=== PATIENT | male | born 2000 | race African-American/Black ===

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

== ENCOUNTER 2020-11-18 15:10 | Emergency (ER) | payer OTHER ==
[~2020-11-18] VITALS: Ht 172.7 cm; Wt 86.2 kg
[2020-11-18 15:22] VITALS: BP 135/81
== END 2020-11-18 16:00 | disposition home or self-care (01) ==
LOC: ED 15:10
DX: Z20.2 Contact with and (suspected) exposure to infections with a predominantly sexual mode of transmission (principal)

== ENCOUNTER 2021-03-08 20:29 | Emergency (ER) | payer OTHER ==
[~2021-03-08] VITALS: Ht 175.2 cm; Wt 86.2 kg
[2021-03-08 20:36] VITALS: BP 149/75
[2021-03-08] MEDS ORDERED: DOXYCYCLINE100 M3 PO (23:25)
[2021-03-09 01:15] LABS: BASO % 0.4 % (0.0-1.0); EOS % 0.4 % (1.0-4.0); HEMATOCRIT 46.6 % (42.0-52.0); LYMPH # 1.5 10*3/uL (1.3-4.4); LYMPH % 18.2 % (27.0-41.0); MEAN CORPUSCULAR HGB 30.9 pg (27.0-31.0); MEAN CORPUSCULAR HGB CONC 33.9 g/dl (33.0-37.0); MEAN PLATELET VOLUME 8.6 fl (9.6-12.3); MONO # 0.3 10*3/uL (0.1-1.0); MONO % 3.9 % (3.0-9.0); NEUT # 6.3 10*3/uL (2.3-7.9); NEUT % 76.7 % (47.0-73.0); PLATELET COUNT AUTOMATED 266 10*3/uL (130-400); RED BLOOD COUNT 5.12 10*6/uL (4.50-5.90); RED CELL DISTRI WIDTH 12.1 % (0-14.5); WHITE BLOOD COUNT 8.2 10*3/uL (4.8-10.8)
[2021-03-09 01:34] LABS: ALKALINE PHOSPHATASE 51 U/L (45-117); BUN 7 mg/dl (7-24); CHLORIDE 101 mmol/L (98-107); CREATININE 0.91 mg/dL (0.70-1.30); POTASSIUM 3.8 mmol/L (3.5-5.1); SGOT/AST 25 IU/L (3-35); SGPT/ALT 19 U/L (12-78); SODIUM 136 mmol/L (136-145); TOTAL PROTEIN 8.2 gm/dL (6.4-8.2)
== END 2021-03-09 02:13 | disposition home or self-care (01) ==
LOC: ED 20:29
PROVIDERS: Physician Assistant
DX: S01.511A Laceration without foreign body of lip, initial encounter (principal); Z98.890 Other specified postprocedural states; W22.8XXA Striking against or struck by other objects, initial encounter; Y93.89 Activity, other specified; Y92.89 Other specified places as the place of occurrence of the external cause; Y99.9 Unspecified external cause status

== ENCOUNTER 2021-08-19 03:53 | Emergency (ER) | payer SELFPAY ==
[~2021-08-19] VITALS: Ht 172.7 cm; Wt 83.9 kg
[~2021-08-19 03:53] MED LIST changes: +DOXYCYCLINE100 M3 PO
[2021-08-19 04:36] VITALS: BP 119/72
[2021-08-19] MEDS ORDERED: TESSALON PERLE100 MG PO (07:45)
[2021-08-19] MEDS ORDERED: CLARITIN10 MG PO (07:45)
== END 2021-08-19 12:22 | disposition home or self-care (01) ==
LOC: ED 03:53
DX: J06.9 Acute upper respiratory infection, unspecified (principal); Z20.822 Contact with and (suspected) exposure to COVID-19; Z98.890 Other specified postprocedural states

== ENCOUNTER 2022-02-11 11:28 | Emergency (ER) | payer SELFPAY ==
[~2022-02-11] VITALS: Ht 172.7 cm; Wt 86.2 kg
[~2022-02-11 11:28] MED LIST changes: +TESSALON PERLE100 MG PO
[2022-02-11 11:34] VITALS: BP 126/71
== END 2022-02-11 13:05 | disposition home or self-care (01) ==
LOC: ED 11:28
DX: A64 Unspecified sexually transmitted disease (principal); Z79.899 Other long term (current) drug therapy; Z98.890 Other specified postprocedural states

== ENCOUNTER 2022-06-12 20:28 | Emergency (ER) | payer OTHER ==
[~2022-06-12] VITALS: Ht 1798 cm; Wt 81.6 kg
[2022-06-12 20:30] VITALS: BP 138/80
[2022-06-12] MEDS ORDERED: SILVADENE20 GM T (21:37)
== END 2022-06-12 22:14 | disposition home or self-care (01) ==
LOC: ED 20:28
DX: T23.301A Burn of third degree of right hand, unspecified site, initial encounter (principal); Z79.899 Other long term (current) drug therapy; Z98.890 Other specified postprocedural states; X19.XXXA Contact with other heat and hot substances, initial encounter; Y93.89 Activity, other specified; Y92.89 Other specified places as the place of occurrence of the external cause; Y99.8 Other external cause status

== ENCOUNTER 2022-10-03 00:02 | Emergency (ER) | payer OTHER ==
[~2022-10-03] VITALS: Ht 172.7 cm; Wt 81.6 kg
[~2022-10-03 00:02] MED LIST changes: +SILVADENE20 GM T
[2022-10-03 00:09] VITALS: BP 123/58
== END 2022-10-03 00:54 | disposition home or self-care (01) ==
LOC: ED 00:02
DX: Z20.2 Contact with and (suspected) exposure to infections with a predominantly sexual mode of transmission (principal); Z98.890 Other specified postprocedural states

== ENCOUNTER 2023-09-04 16:56 | Emergency (ER) | payer OTHER ==
[~2023-09-04] VITALS: Ht 172.7 cm; Wt 77.1 kg
[2023-09-04 17:01] VITALS: BP 131/64
[2023-09-04] MEDS ORDERED: CEPHALEXIN500 M1 PO (18:28)
== END 2023-09-04 19:18 | disposition home or self-care (01) ==
LOC: ED 16:56
DX: S61.412A Laceration without foreign body of left hand, initial encounter (principal); J45.909 Unspecified asthma, uncomplicated; Z98.890 Other specified postprocedural states; W25.XXXA Contact with sharp glass, initial encounter; Y93.89 Activity, other specified; Y92.89 Other specified places as the place of occurrence of the external cause; Y99.0 Civilian activity done for income or pay

== ENCOUNTER → 2023-09-12 | Outpatient (CLI) | payer OTHER ==
[~2023-09-12] MED LIST changes: +CEPHALEXIN500 M1 PO
== END | disposition home or self-care (01) ==
LOC: WOUNDCARE 01:57
PROVIDERS: ATTEND Nurse Practitioner Family
DX: S61.412A Laceration without foreign body of left hand, initial encounter (principal); L98.9 Disorder of the skin and subcutaneous tissue, unspecified; R23.9 Unspecified skin changes; X58.XXXA Exposure to other specified factors, initial encounter; Y93.89 Activity, other specified; Y92.89 Other specified places as the place of occurrence of the external cause; Y99.8 Other external cause status